=== PATIENT | female | born 1985 | race Caucasian/White ===

== ENCOUNTER 2018-07-03 21:35 | Inpatient (IN) | payer OTHER ==
[2018-07-03] MEDS ORDERED: METOCLOPRAMIDE HCL 5 MG/ML 2 ML VIAL IVP PRN (21:45)
[2018-07-03] MEDS ORDERED: TERBUTALINE SULFATE 1 MG/ML VIAL SQ PRN (21:45)
[2018-07-03] MEDS ORDERED: OXYTOCIN 20 UNITS/LACT RINGERS 1,000 ML IV ONE (21:45)
[2018-07-03] MEDS ORDERED: LIDOCAINE/PF 1% 30 ML VIAL INJ PRN (21:45)
[2018-07-03] MEDS ORDERED: CITRIC ACID/SODIUM CITRATE 30 ML SOLUTION UDCUP PO PRN (21:45)
[2018-07-03 22:10] LABS: BASOPHILS % (AUTO) 0.2 % (0.0-2.0); EOSINOPHILS % (AUTO) 0.6 % (1.0-6.0); HEMOGLOBIN 13.1 g/dL (12.0-16.0); LYMPHOCYTES # (AUTO) 1.7 K/uL (1.0-4.8); MEAN CORPUSCULAR HEMOGLOBIN 31.5 pg (26.0-34.0); MEAN CORPUSCULAR HGB CONC 33.6 G/dL (31.0-37.0); MEAN CORPUSCULAR VOLUME 94 fL (80-100); MONOCYTES # (AUTO) 0.7 K/uL (0.1-1.0); MONOCYTES % (AUTO) 9.4 % (2.0-9.0); NEUTROPHILS # (AUTO) 5.1 K/uL (1.8-7.7); NEUTROPHILS % (AUTO) 67.8 % (40.0-70.0); PLATELET COUNT (AUTO)-OB 158 K/uL (150-450); RED BLOOD CELL COUNT(AUTO) 4.17 MIL/uL (4.00-5.20); RED CELL DISTRIBUTION WIDTH 13.6 % (11.5-14.5)
[2018-07-03] MEDS ORDERED: MISOPROSTOL 25 MCG TABLET VG SCH (23:00)
[2018-07-03 23:06] VITALS: BP 137/83
[2018-07-03] MEDS ORDERED: [UNRECOGNIZED DRUG - OTHER] PO (23:09)
[2018-07-03] MEDS: RINGERS SOLUTION,LACTATED 1,000 ML IV SCH (23:34)
[2018-07-04] MEDS ORDERED: MISOPROSTOL 25 MCG TABLET PO SCH (03:00)
[2018-07-04] MEDS ORDERED: MISOPROSTOL 50 MCG TABLET PO ONE (03:45)
[2018-07-04] MEDS: RINGERS SOLUTION,LACTATED 1,000 ML IV SCH ×2 (06:19→16:05)
[2018-07-04] MEDS: MISOPROSTOL 25 MCG TABLET PO SCH ×3 (08:14→13:02)
[2018-07-04] MEDS: MISOPROSTOL 50 MCG TABLET PO SCH ×2 (17:26→21:29)
[2018-07-04] MEDS ORDERED: ACETAMINOPHEN 1000 MG/ISO-OSM 0 ML IV ONE (22:43)
[2018-07-04] MEDS ORDERED: BUPIVACAINE HCL/DEX-WATER/PF 0.75% 2 ML AMP ONE (22:43)
[2018-07-04] MEDS ORDERED: MORPHINE SULFATE/PF 0.5 MG/ML 10 ML AMP ONE (22:44)
[2018-07-05] MEDS: RINGERS SOLUTION,LACTATED 1,000 ML IV SCH ×2 (01:30→03:27)
[2018-07-05] MEDS ORDERED: ROPIVACAINE HCL/PF 0.2% 100 ML ED ONE (01:42)
[2018-07-05] MEDS ORDERED: DiphenhydrAMINE HCL 50 MG/ML VIAL IVP PRN (02:15)
[2018-07-05] MEDS ORDERED: ROPIVACAINE HCL/PF 0.2% 100 ML ED PRN (02:15)
[2018-07-05] MEDS ORDERED: ONDANSETRON HCL 4 MG/2 ML VIAL IVP PRN (02:15)
[2018-07-05] MEDS ORDERED: OXYTOCIN 30 UNITS/LACT RINGERS 500 ML IV PRN (02:45)
[2018-07-05] MEDS ORDERED: METHYLERGONOVINE MALEATE 0.2 MG/ML VIAL ONE (07:55)
[2018-07-05] MEDS ORDERED: METHYLERGONOVINE MALEATE 0.2 MG/ML VIAL IM ONE (08:30)
[2018-07-05] MEDS ORDERED: RINGERS SOLUTION,LACTATED 1,000 ML IV ONE (08:35)
[2018-07-05] MEDS ORDERED: BENZOCAINE 20%/MENTHOL 56 GM SPRAY CANISTER TP PRN (08:45)
[2018-07-05] MEDS ORDERED: MEASLES/MUMPS/RUBELLA VACCINE, LIVE 0.5 ML/VIAL SQ ONE (08:45)
[2018-07-05] MEDS ORDERED: LANOLIN 7 GM OINTMENT TP PRN (08:45)
[2018-07-05] MEDS ORDERED: OxyCODONE HCL/ACETAMINOPHEN 5-325 MG TABLET PO PRN ×2 (08:45)
[2018-07-05] MEDS ORDERED: GLYCERIN/WITCH HAZEL LEAF 40 PADS JAR TP PRN (08:45)
[2018-07-05] MEDS: MAGNESIUM HYDROXIDE SUSPENSION 30 ML UDCUP PO SCH ×2 (10:01→22:03)
[2018-07-05] MEDS: IBUPROFEN 600 MG TABLET PO PRN ×3 (10:24→22:04)
[2018-07-06] MEDS: IBUPROFEN 600 MG TABLET PO PRN (04:43)
[2018-07-06] MEDS: MAGNESIUM HYDROXIDE SUSPENSION 30 ML UDCUP PO SCH (08:19)
[2018-07-06] MEDS ORDERED: ACET-66 PO (10:18)
[2018-07-06] MEDS ORDERED: IBUP-2070 PO (10:19)
[2018-07-06] MEDS ORDERED: DSS100 PO (10:19)
== END 2018-07-06 12:05 | disposition home or self-care (01) | DRG 807 ==
LOC: 4S 21:35 → OBSVTOIN 21:35
PROVIDERS: ADMIT Obstetrics & Gynecology; ATTEND Obstetrics & Gynecology
PROC: 10E0XZZ Delivery of Products of Conception, External Approach (ICD-10-PCS; principal; 2018-07-05)
PROC: 3E0R3BZ Introduction of Anesthetic Agent into Spinal Canal, Percutaneous Approach (ICD-10-PCS; 2018-07-05)
PROC: 00HU33Z Insertion of Infusion Device into Spinal Canal, Percutaneous Approach (ICD-10-PCS; 2018-07-05)
PROC: 0KQM0ZZ Repair Perineum Muscle, Open Approach (ICD-10-PCS; 2018-07-05)
DX: O70.1 Second degree perineal laceration during delivery (principal); Z37.0 Single live birth; Z3A.41 41 weeks gestation of pregnancy
CPT/HCPCS: 86850; 86900; 86901; J0131; J2210; J2274; J2590; J2795; J3490; J7120